=== PATIENT | female | born 1980 | race Caucasian/White ===

== ENCOUNTER 2016-09-29 16:22 | Emergency (ER) | payer BC, MEDICAID ==
[~2016-09-29] VITALS: Ht 165.1 cm; Wt 50.0 kg
[2016-09-29 16:26] VITALS: Ht 165.1 cm; Wt 50.0 kg
[2016-09-29 17:17] LABS: URINE BLOOD (Dip) POC 3+ (NEGATIVE)
[2016-09-29] MEDS ORDERED: IBUP-1542 PO (17:30)
[2016-09-29] MEDS ORDERED: CEPH500C PO (17:30)
[2016-09-29] MEDS ORDERED: CEPHALEXIN 500 MG CAP PO ONE (17:30)
[2016-09-29] MEDS ORDERED: IBUPROFEN 600 MG TAB PO ONE (17:30)
--- NOTE | 2016-09-29 17:34 | ERD ---
ER Documentation Chief Complaint Date/Time DATE: 09/29/16 TIME: 17:31 Chief Complaint LOWER BACK PAIN AND L ARM PAIN SP FALL HPI This 36 feel presents with multiple complaints. She plains of low back pain after rolling backwards approximate one month ago. She has some sensation of intermittent tingling in her left hand. May be due to her heart. She additionally says she thinks she needs to have her appendix taken out for some pain on the right lateral abdomen. Patient that she had fevers but did not take her temperature and she has no fever triage. There is no history of left chest pain, shortness of breath, vomiting. ROS All systems reviewed and are negative except as per history of present illness. Medications Home Meds Active Scripts Cephalexin* (Cephalexin*) 500 Mg Capsule, 500 MG PO Q6 for 5 Days, #20 CAP Prov:TRIP FELIX MD 09/29/16 Ibuprofen* (Motrin*) 600 Mg Tab, 600 MG PO Q6, #20 TAB Prov:TRIP FELIX MD 09/29/16 Allergies Allergies: Coded Allergies: No Known Allergy (Unverified , 09/29/16) PMhx/Soc Medical and Surgical Hx: pt denies Medical Hx, pt denies Surgical Hx Physical Exam Vitals Vital Signs Date Time Temp Pulse Resp B/P Pulse Ox O2 Delivery O2 Flow Rate FiO2 09/29/16 16:26 97.8 89 18 114/56 98 Physical Exam Const: [] Alert, not ill-appearing, disheveled Head: Atraumatic Eyes: Normal Conjunctiva ENT: Normal External Ears, Nose and Mouth. Neck: Full range of motion..~ No meningismus. Resp: Clear to auscultation bilaterally Cardio: Regular rate and rhythm, no murmurs Abd: Soft, mild tenderness right mid abdomen. Mentation McBurney's point and no Ha's no rebound. Non distended. Normal bowel sounds Skin: No petechiae or rashes Back: No midline or flank tenderness. Minimal L4-L5 paraspinous tenderness. Ext: No cyanosis, or edema. No tenderness or deformities restricted range of motion weakness on the affected extremities. Neur: Awake and alert Psych: Normal Mood and Affect Results 24 hrs Laboratory Tests Test 09/29/16 17:18 Bedside Urine pH (LAB) 5.5 Bedside Urine Protein (LAB) 3+ Bedside Urine Glucose (UA) Negative Bedside Urine Ketones (LAB) 1+ Bedside Urine Blood 3+ Bedside Urine Nitrite (LAB) Positive Bedside Urine Leukocyte Esterase (L 3+ Current Medications Medications (Trade) Dose Ordered Sig/Guilherme Route PRN Reason Start Time Stop Time Status Last Admin Dose Admin Ibuprofen (Motrin) 600 mg ONCE ONCE PO 09/29/16 17:30 09/29/16 17:31 DC 09/29/16 17:21 Cephalexin (Keflex) 500 mg ONCE ONCE PO 09/29/16 17:30 09/29/16 17:31 DC 09/29/16 17:22 Procedures/MDM Patient's urine shows positive leukocytes, hemoglobin nitrites patient is given ibuprofen 600 mg by mouth Keflex 500 modems by mouth. Patient says with multiple complaints and signs of UTI. Patient has no signs or symptoms currently to suggest appendicitis, acute abdomen, fracture, dislocation or emergent causes of his any complaints. [facility], otherwise instructs to return to the ER for fevers, vomiting, worsening abdominal pain, new or worsening symptoms. Rivera discharge Departure Diagnosis: Primary Impression: UTI (urinary tract infection) Urinary tract infection type: acute cystitis Hematuria presence: without hematuria Qualified Code: N30.00 - Acute cystitis without hematuria Additional Impression: Abdominal pain Abdominal location: unspecified location Qualified Code: R10.9 - Abdominal pain, unspecified location Condition: Stable Patient Instructions: Abdominal Pain, Understanding Urinary Tract Infections ( UTIs), Self-Care for Low Back Pain Additional Instructions: Urine shows infection. Recheck for vomiting, new or worsening symptoms or primary care doctor. TRIP FELIX MD September 29, 2016 17:34
== END 2016-09-29 18:02 | disposition home or self-care (01) ==
LOC: FTE 16:22
DX: N30.00 Acute cystitis without hematuria (principal); R10.9 Unspecified abdominal pain
CPT/HCPCS: 81003; 99283; Z7610